=== PATIENT | male | born 1965 | race Two or more races ===

== ENCOUNTER 2017-09-11 10:54 | Inpatient (IN) | payer OTHER ==
[~2017-09-11] VITALS: Ht 165.1 cm; Wt 90.0 kg
[~2017-09-11 10:54] MED LIST: ASPIR 8181 MG PO; FINASTERIDE5 M1 PO; FLO4 PO; LOSARTAN POTASS25 M1 PO; NORCO1 TA2 PO; TOPROL XL25 MG PO
--- NOTE | 2017-09-11 11:03 | NUR ---
EMT JANICE PERFORMING EKG
--- NOTE | 2017-09-11 11:15 | NUR ---
PT PRESENTS TO ED WITH C/O INTERMITTENT NON-RADIATING CP THAT STARTED 5 DAYS AGO. PT RATES PAIN AT ITS WORST 8-9/10 AND BURNING IN QUALITY. AT TIME OF ASSESSMENT PTS PAIN 6/10, BURNING IN QUALITY. PT REPORTS HX OF PACEMAKER PLACEMENT IN 2009 AND CHRONIC ARM PAIN X "YEARS AND YEARS." PT REPORTS CP STARTED IN LEFT ARM AND IS NOW ONLY MIDSTERNAL. PT DENIES SOB, DENIES N/V. PT REPORTS WHEN CHEST PAIN IS AT ITS WORST HE IS DIZZY, NO DIZZINESS AT TIME OF ASSESSMENT. PT CHANGED INTO GOWN, CONNECTED TO CARDIORESP MONITORS, AWAITING EVAL BY
[2017-09-11 12:31] LABS: BASOPHIL % 0.5 % (0-2); PLATELET COUNT 217 x10^3mcL (130-400); RED CELL DISTRIBUTION WIDTH 13.1 % (11.5-14.5)
[2017-09-11 12:42] LABS: CALCIUM 8.5 mg/dL (8.5-10.1); CARBON DIOXIDE 29.5 mmol/L (21-32); CHLORIDE SERUM 105 mmol/L (98-107); GFR1 > 60 mL/min; GLUCOSE SERUM 116 mg/dL (74-106); POTASSIUM SERUM 3.7 mmol/L (3.5-5.1); SODIUM SERUM 139 mmol/L (136-145)
[2017-09-11 12:47] LABS: ALBUMIN 3.4 g/dL (3.4-5.0); ALKALINE PHOSPHATASE 59 U/L (46-116); ALT/SGPT 40 U/L (16-63); AST/SGOT 32 U/L (15-37); BILIRUBIN TOTAL 0.28 mg/dL (0.20-1.00); TOTAL PROTEIN, SERUM 7.2 g/dL (6.4-8.2)
--- NOTE | 2017-09-11 13:33 | NUR ---
REPORT CALLED TO [facility] FOR MARÍA ELENA RING RN TO ASSUME CARE OF PT POST TRANSFER TO TELE UNIT.
[2017-09-11 13:58] LABS: microscopic required? NO
[2017-09-11 14:08] VITALS: BP 135/89
[2017-09-11 14:08] LABS: urine erythrocyte NEGATIVE (NEGATIVE)
[2017-09-11 14:16] LABS: AMPHETAMINE QUAL UR NONE DETECTED (NEG <=1000)
[2017-09-11 14:24] VITALS: BP 135/89
--- NOTE | 2017-09-11 14:28 | NUR ---
RECEIVED PT FROM ED VIA [employer]. ORIENTED PT TO ROOM AND SURROUNDINGS. IV NOTED TO RAC PATENT AND INTACT. TELE 7 PLACED ON PT READING NSR. INSTRUCTED PT ON THE USE OF CALL LIGHT FOR ASSISTANCE. BED IN LOWEST POSITION AND SIDE RAILS UPX 2
[2017-09-11 14:54] LABS: CHOLESTEROL/HDL RATIO 4.6; MAGNESIUM 2.2 mg/dL (1.8-2.4); PHOSPHOROUS 3.3 mg/dL (2.5-4.9)
[2017-09-11 15:02] LABS: FREE T4 0.9 ng/dL (0.76-1.46); FREE THYROXINE INDEX 2.5 ug/dL (1.4-4.5); T4(THYROXINE) 7.4 ug/dL (4.7-13.3)
[2017-09-11 15:03] LABS: T3 TOTAL 1.03 ng/mL
--- NOTE | 2017-09-11 16:19 | NUR ---
PT. LAYING WITH EYES CLOSED, RESPIRATIONS NOTED, IN NO APPARENT DISTRESS BED IN LOWEST POSITION, CALL LIGHT WITHIN REACH, 2 RAILS UP.
[2017-09-11 16:58] VITALS: BP 114/79
--- NOTE | 2017-09-11 17:23 | NUR ---
PT AWAKE, ALERT, ORIENTED, DENIES CHEST PAIN AT THIS MOMENT, IN NO APPARENT DISTRESS. BED IN LOWEST POSITION, CALL LIGHT WITHIN REACH, 2 RAILS UP.
--- NOTE | 2017-09-11 18:34 | NUR ---
PT ALERT, AWAKE, ORIENTED, DENIES CHEST PAIN, PACEMAKER INTERROGATED AND PLACED INTO CHART. BED IN LOWEST POSITION, CALL LIGHT WITHIN REACH, 2 RAILS UP.
[2017-09-11 20:00] VITALS: BP 127/77
--- NOTE | 2017-09-11 20:00 | NUR ---
PATIENT RECEIVED IN BED AWAKE, ALERT AND ORIENTED X4, SPEECH CLEAR, DENIES DOMINGO, DENIES DIZZINESS THIS TIME. BREATHING EVEN AND UNLABORED, BS CLEAR, ON ROOM AIR SAT 98%. DENIES CHEST PAINS, HR=74BPM, RHYTHM REGULAR, NO PACER BEATS NOTED. ABDOMEN SOFT NON DISTENDED ACTIVE BS. VOIDS FREELY. PATIENT WITH HX: CHRONIC LEFT SHOULDER/ARM PAIN AND STATED AT 4/10 NOW, HE STATED SUFFERED INJURY TO THAT ARM. APPLIED SCD'S TO BLE AND INFORMED ABOUT ITS PURPOSE AND IMPORTANCE BEING FOR DVT PROPHYLAXIS. NO EDEMA NOTED, PULSES STRONG. PATIENT INFORMED ABOUT POC THIS SHIFT. WILL CONTINUE TO MONITOR.
[2017-09-11 20:59] VITALS: BP 126/79
--- NOTE | 2017-09-11 21:02 | NUR ---
SCHEDULED MEDS ADMINISTERED, PATIENT INFORMED ABOUT EACH MEDS ACTIONS AND PURPOSES PRIOR. PATIENT TOOK MEDS WITHOUT DIFF. ALSO COMPLAINED OF LEFT ARM PAIN MEDICATED PRN, MADE COMFORTABLE IN BED. WILL CHECK EFFECTIVENESS.
--- NOTE | 2017-09-11 22:00 | NUR ---
PATIENT CHECKED, SLEEPING AND SNOOZING, EASILY AWAKEN WHEN NAME CALLED. STATED PAIN IS SLOWLY SUBSIDING AT 2/10. WILL CONTINUE TO MONITOR.
--- NOTE | 2017-09-12 | NUR ---
ROUNDS MADE PATIENT SLEEPING COMFORTABLY THIS TIME AWAKEN WHEN NAME CALLED.DENIES CP AND LEFT ARM PAIN, SR ON THE MONITOR. IV SITE NO SIGN OF INFILTRATION. SAFETY MAINTAINED. WILL CONTINUE.
--- NOTE | 2017-09-12 02:00 | NUR ---
PATIENT REMAINED ASLEEP, NO DISTRESS.SAFETY MAINTAINED. WILL CONTINUE TO MONITOR.
--- NOTE | 2017-09-12 04:00 | NUR ---
SLEEPING COMFORTABLY AND QUIETLY THIS TIME, SB-SR ON THE MONITOR,. WILL CONTINUE TO MONITOR.
[2017-09-12 05:26] LABS: BASOPHIL % 0.5 % (0-2); PLATELET COUNT 219 x10^3mcL (130-400)
[2017-09-12 05:38] LABS: CALCIUM 7.9 mg/dL (8.5-10.1); CHLORIDE SERUM 107 mmol/L (98-107); GFR1 > 60 mL/min; GLUCOSE SERUM 122 mg/dL (74-106); PHOSPHOROUS 3.1 mg/dL (2.5-4.9); POTASSIUM SERUM 3.8 mmol/L (3.5-5.1); SODIUM SERUM 141 mmol/L (136-145)
[2017-09-12 05:51] VITALS: BP 105/75
--- NOTE | 2017-09-12 06:12 | NUR ---
PATIENT HAD A RESTFUL AND QUIET NIGHT, NO COMPLAINT OF CHEST PAINS. WAS MEDICATED X1 WITH NORCO FOR COMPLAINT OF LEFT SHOULDER /ARM PAIN AND RECEIVED RELIEF. IV SITE NO SIGN OF INFILTRATION. SCD'S TO BLE APPLIED DURING THE NIGHT AND INFORMED PATIENT ABOUT ITS PURPOSE AND IMPORTANCE BEING FOR DVT PROPHYLAXIS. WILL ENDORSE CONTINUITY OF CARE TO INCOMING NURSE.
--- NOTE | 2017-09-12 07:14 | NUR ---
BEDSIDE REPORT AND INTRODUCTION PERFORMED WITH INCOMING NURSE WILLIE.
--- NOTE | 2017-09-12 07:33 | NUR ---
PT AWAKE, ALERT, ORIENTED X4, IN BED EATING BREAKFAST.NO APPARENT DISTRESS NOTED, STATES NO CHEST PAIN, PRESSURE OR SOB. HRRR, TELE 17 STATES HAS HEADACHE RATES PAIN 6/10 WILL MEDICATE WITH NORCO. BED IN LOWEST POSITION, CALL LIGHT WITHIN REACH, 2RAILS UP.
[2017-09-12 07:48] VITALS: BP 107/69
[2017-09-12 10:07] VITALS: BP 107/65
--- NOTE | 2017-09-12 10:09 | NUR ---
PATIENT ALERT, AWAKE, ORIENTED, DENIES PAIN, PRESSURE, SOB. RESPIRATIONS EQUAL, UNLABORED, NO DISTRESS NOTED, PULSES STRONG THROUGHOUT, SKIN CDI THROUGHOUT, ABDOMEN SOFT, ROUND, NONTENDER, BOWEL SOUNDS ACTIVE X4 , AMBULATES INDEPENDENTLY, BED IN LOWEST POSITION, CALL LIGHT WITHIN REACH, 2 RAILS UP.
--- NOTE | 2017-09-12 11:21 | NUR ---
PT AWAKE, ALERT, ORIENTED, LAYING IN BED WATCHING TV. DENIES CHEST PAIN, PRESSURE, SOB. ENCOURAGED PATIENT TO AMBULATE. BED IN LOWEST POSITION, CALL LIGHT WITHIN REACH, 2 RAILS UP.
--- NOTE | 2017-09-12 12:33 | NUR ---
DR MARTIN IN TO SEE PATIENT. WOULD LIKE PATIENT TO HOLD STATIN FOR TWO WEEKS AND FOLLOW UP WITH PRIMARY CARE PHYSICIAN TO SEE HOW CK IS. AND ALSO OUTPATIENT STRESS TEST.
--- NOTE | 2017-09-12 12:35 | NUR ---
OVERHEARD DR MARTIN TALKING WIHT DR SCHREIBER. PATIENT TO NOT TAKE STATIN FOR THREE WEEKS.
[2017-09-12 14:13] VITALS: BP 116/76
--- NOTE | 2017-09-12 14:58 | NUR ---
UP IN HALLWAY ASKING WHEN WOULD BE GOING HOME. PAGED DR SCHREIBER.
--- NOTE | 2017-09-12 15:00 | NUR ---
SPOKE WITH DR SCHREIBER, PATIENT TO STAY ANOTHER NIGHT.
--- NOTE | 2017-09-12 15:10 | NUR ---
EXPLAINED DISEASE PROCESS TO PATIENT AND WILL CHECK LABS IN AM TO SEE IF CK RESOLVED, VERBALIZED UNDERSTANDING AND OKAY WITH STAYING ANOTHER NIGHT.
--- NOTE | 2017-09-12 17:36 | NUR ---
PT AWAKE, ALERT, ORIENTED, LAYING BED WATCHING TV. REASSESSED PAIN PT STATED HEADACHE PAIN HAS DECREASED TO 3/10, DENIES DIZZINESS, SOB, CHEST PRESSURE, OR CHEST PAIN AT THIS TIME. WILL CONTINUE TO MONITOR. BED IN LOWEST POSITION, CALL LIGHT WITHIN REACH, 2 RAILS UP.
--- NOTE | 2017-09-12 18:14 | NUR ---
PT AMBULATING HALLS, NO SIGNS OF DISTRESS, GAIT STABLE/WNL.
[2017-09-12 18:16] VITALS: BP 125/77
[2017-09-12 20:00] VITALS: BP 112/59
--- NOTE | 2017-09-12 20:00 | NUR ---
RECEIVED IN BED AWAKE, ALERT AND ORIENTED X4, SPEECH CLEAR,DENIES DIZZINESS. BREATHING EVEN AND UNLABORD, BS CLEAR, DENIES SOB, ON ROOM AIR SAT 98%. DENIES CHEST PAINS THIS TIME, HR=71BPM, TELE#7, NSR, NO PACER BEATS NOTED. PATIENT AMBULATORY WITH STEADY GAIT, SCD'S TO BLE RE-APPLIED. IV SITE NO SIGN OF INFILTRATION. BM TODAY. VOIDING FREELY. C/O OFF AND ON LEFT SHOULDER PAIN AND ARM PAIN,RATED AT 4/10 NOW, REQUESTED PAIN MEDS AROUND 2100. STATED PAIN IS BEARABLE THIS TIME,. WILL CONTINUE TO MONITOR. PATIENT INFORMED ABOUT POC THIS SHIFT.
--- NOTE | 2017-09-12 21:18 | NUR ---
SCHEDULED MEDS ADMINISTERED, PATIENT INFORMED ABOUT EACH MEDS ACTIONS AND PURPOSE PRIOR, NO DIFF SWALLOWING. ALSO COMPLAINED OF LEFT ARM/SHOULDER PAIN, RATED AT 6-7/10 THROBBING. MEDICATED PRN, MADE COMFORTABLE IN BED. WILL CHECK EFFECTIVENESS.
--- NOTE | 2017-09-12 22:30 | NUR ---
CHECKED PATIENT THIS TIME, SLEEPING EASILY AWAKEN WHEN NAME CALLED, STATED LEFT ARM AND SHOULDER PAIN IS AT 2/10, COMFORTANLE. WILL CONTINUE TO MONITOR.
--- NOTE | 2017-09-13 | NUR ---
PATIENT SLEEPING QUIETLY AND COMFORTABLY THIS TIME, NO DISTRESS, SR WITH PAC'S WITH OCC TO RARE PACER BEATS. IV SITE NO SIGN OF INFILTRATION. SAFETY MAINTAINED. WILL CONTINUE TO MONITOR.
[2017-09-13 05:23] VITALS: BP 115/78
[2017-09-13 06:05] LABS: BASOPHIL % 0.5 % (0-2); PLATELET COUNT 230 x10^3mcL (130-400)
[2017-09-13 06:23] LABS: CALCIUM 8.4 mg/dL (8.5-10.1); CARBON DIOXIDE 28.2 mmol/L (21-32); CHLORIDE SERUM 106 mmol/L (98-107); GFR1 > 60 mL/min; GLUCOSE SERUM 92 mg/dL (74-106); MAGNESIUM 1.9 mg/dL (1.8-2.4); PHOSPHOROUS 3.2 mg/dL (2.5-4.9); POTASSIUM SERUM 4.3 mmol/L (3.5-5.1); SODIUM SERUM 140 mmol/L (136-145)
--- NOTE | 2017-09-13 06:45 | NUR ---
PATIENT STATED HAD A RESTFUL AND QUIET NIGHT, DENIED CHEST PAINS, SR WITH PAC'S AND RARE AND OCC PACER BEATS. IV SITE NO SIGN OF INFILTRATION. AMBULATORY WITH STEADY GAIT. WILL ENDORSE CONTINUITY OF CARE TO INCOMING NURSE.
--- NOTE | 2017-09-13 07:21 | NUR ---
BEDSIDE REPORT AND INTRODUCTION PERFORMED WITH INCOMING NURSE NIKKI.
--- NOTE | 2017-09-13 08:40 | NUR ---
RECIEVE PATIENT SITTING UP AT BEDSDID. DENIES PAIN OR NAUEAE AT THIS TIME NOTED TRACE JESSICA TOT HE LOWER EXTREMTIES AND WITH ADOOMEN DISTENDED AND MODERATELY FIRM. PATIENT AHS BEEN URINAITN GWITHOUT ANY COMPLAINTS AND ATE ALL HIS BREAKFATS AND TOLERQATE WELL. DENIES CHEST PAIN AT THIS TIME. NOTED PAITENT WIHT HIOSTYR OF PACEMAKE PLACEMENT AND CAD. NOTED PATIENWTH SINUS RYTHM AND PACE TO. PATIENT IS FOR AN ECHO TODYA AND PATIE TAHS NGEGATIVE TROPONINS THIMES THREE. PATIENT AHS LAST BLOOD SUGA RAT 96 AND WAS SEEN BY DR MARTIN AND NOTED RECOMENDATIONS FO RPOST HOPITAL CARE IN THE CHART. PATIENT HAS NEGATIVE CHEST XRAY AND AIC AT 5.7 AND CA AT 7.9. PATIENT HAS BEEN ON ROOM AIR. VITALS AT THIS TIME AT 97.0, 60, 18, 115/78, 89 MAP. WANTS TO GO HOME TODAY. WILL AWAIT THE ROUND FOR FURTHER PLAN OF CARE INSTRUCTION.
--- NOTE | 2017-09-13 09:15 | NUR ---
PATIENT SEEN BY DR LAMAR AND STAFF. DISCUSED THAT ISSUES AND NOT FOUND TO BE HIS HEART AND ADVISED WILL BE ORDERED BUSPAR FOR AT HOME. PATIENT IS PLANNED FOR DISCHARGE HOME TODAY.
[2017-09-13 10:27] VITALS: BP 96/69
--- NOTE | 2017-09-13 12:33 | NUR ---
BLOOD SUGAR AT THIS TIME AT 93 AND NO COVERAGE WAS INDICATED.
[2017-09-13] MEDS ORDERED: BUS5 PO (13:35)
[2017-09-13 13:40] VITALS: BP 114/62
--- NOTE | 2017-09-13 13:50 | NUR ---
PATIENT ORDERS PENDING AT THIS TIME. ADDED EDUCATION AND AWAITING DR TO OCOMPLETE THE DISCHARGE ORDER AND WILL COMPLETE THE NURSING PORTION AND PLAN FOR DISCHARGE HOME TODAY.
[2017-09-13 14:31] VITALS: BP 114/62
[2017-09-13] MEDS ORDERED: PRA20 PO (14:31)
--- NOTE | 2017-09-13 15:14 | NUR ---
REMOVED IV AND TELE INDICATED. PATIENT DISCHARGE TO HOME TO FOLLOW UP WITH PRIMARY AND CHLORINATION OPERATOR ARRANGED. PATIENT DENIES CHEST PAIN AT TIME OF DISCHARGE AND PATIENT HAS A PRESCRIPTION SENT TO HIS PHARMACY FOR BUPAR HE IS TO START TAKING TODAY. DISHCRAGE TO HOME WITH ALL BELONGINGS.
== END 2017-09-13 15:15 | disposition home or self-care (01) | DRG 812 ==
LOC: ED 10:54 → DU 13:18
PROVIDERS: Emergency Medicine; ADMIT Family Medicine
DX: T46.6X5A Adverse effect of antihyperlipidemic and antiarteriosclerotic drugs, initial encounter (principal); G72.0 Drug-induced myopathy; M94.0 Chondrocostal junction syndrome [Tietze]; I10 Essential (primary) hypertension; I25.10 Atherosclerotic heart disease of native coronary artery without angina pectoris; N40.0 Benign prostatic hyperplasia without lower urinary tract symptoms; R73.03 Prediabetes; F41.9 Anxiety disorder, unspecified; T42.4X6A Underdosing of benzodiazepines, initial encounter; E78.5 Hyperlipidemia, unspecified; E66.9 Obesity, unspecified; Z68.33 Body mass index [BMI] 33.0-33.9, adult; Z95.0 Presence of cardiac pacemaker; Z98.61 Coronary angioplasty status; Z86.711 Personal history of pulmonary embolism; Z79.82 Long term (current) use of aspirin; Z91.128 Patient's intentional underdosing of medication regimen for other reason; Y92.009 Unspecified place in unspecified non-institutional (private) residence as the place of occurrence of the external cause
CPT/HCPCS: 83880; 84439; J7030; Q0092

== ENCOUNTER 2018-09-16 17:57 | Emergency (ER) | payer MEDICAID ==
[~2018-09-16] VITALS: Ht 165.1 cm; Wt 91.2 kg
[~2018-09-16 17:57] MED LIST changes: +BUS5 PO; +PRA20 PO
[2018-09-16 18:01] VITALS: Ht 165.1 cm; Wt 91.2 kg
[2018-09-16 19:52] VITALS: BP 122/76
== END 2018-09-16 19:52 | disposition home or self-care (01) ==
LOC: ED 17:57
DX: R51 Headache (principal); R11.0 Nausea; Z86.79 Personal history of other diseases of the circulatory system; I10 Essential (primary) hypertension; Z95.0 Presence of cardiac pacemaker; Z90.79 Acquired absence of other genital organ(s)
CPT/HCPCS: J1885